=== PATIENT | female | born 1950 | race Caucasian/White ===

== ENCOUNTER 2016-11-18 13:08 | Emergency (ER) | payer MEDICAID, MEDICARE ==
[~2016-11-18] VITALS: Ht 160 cm; Wt 93.1 kg
[~2016-11-18 13:08] MED LIST: ACET-76 PO; AMLO5TAB2 PO; ARTHRITIS PAIN PO; DIAZ5TAB PO; DIPH25CA61 PO; FOLI-17 PO; MULT-750 PO; MULT-82 PO; OMEP-110 PO; OXYC-295 PO; OXYC1TAB8 PO; OXYC5CAP4 PO; THIA100T10 PO
[2016-11-18 13:22] VITALS: BP 130/72
[2016-11-18] MEDS ORDERED: CEFAZOLIN 1,000 MG IM ONE (13:30)
[2016-11-18] MEDS ORDERED: CLINDAMYCIN 300 MG CAPSULE PO ONE (14:00)
== END 2016-11-18 15:03 | disposition home or self-care (01) ==
LOC: ED 14:52
DX: L03.113 Cellulitis of right upper limb (principal); I10 Essential (primary) hypertension; F17.200 Nicotine dependence, unspecified, uncomplicated; Z88.2 Allergy status to sulfonamides; Z88.5 Allergy status to narcotic agent
CPT/HCPCS: 99284

== ENCOUNTER 2018-03-07 16:21 | Emergency (ER) | payer MEDICARE ==
[~2018-03-07] VITALS: Ht 160 cm; Wt 90.0 kg
[~2018-03-07 16:21] MED LIST changes: -AMLO5TAB2 PO; +AMLO5TAB7 PO; +MULT-224 PO; -MULT-82 PO; +OXYC5CAP2 PO; -OXYC5CAP4 PO
[2018-03-07] MEDS ORDERED: SODIUM CHLORIDE FLUSH 10ML SYR IVF ONE (16:30)
[2018-03-07] MEDS ORDERED: SODIUM CHLORIDE 0.9% 1,000ML IVBOLUS ONE ×2 (16:30→19:30)
[2018-03-07 17:33] LABS: MEAN CORPUSCULAR HEMOGLOBIN 34.1 pg (27.0-34.8); MEAN CORPUSCULAR HGB CONC 34.4 g/dL (32.4-35.8); MEAN CORPUSCULAR VOLUME 99.2 fL (80-100); MEAN PLATELET VOLUME 7.9 fL (7.4-10.4); PLATELET COUNT 184 x10^3/uL (130-400); RED BLOOD COUNT 4.33 x10^6/uL (3.82-5.3); RED CELL DISTRIBUTION WIDTH 12.3 % (9.6-15.2)
[2018-03-07 17:43] LABS: ALANINE AMINOTRANSFERASE 62 U/L (12-78); ALBUMIN 3.8 g/dL (3.4-5.0); ANION GAP 13 mmol/L (5-15); CALCIUM 8.2 mg/dL (8.5-10.1); CHLORIDE 106 mmol/L (98-107); CREATININE 0.77 mg/dL (0.55-1.02)
[2018-03-07 17:48] LABS: ALKALINE PHOSPHATASE 100 U/L (45-117); BILIRUBIN,TOTAL 0.5 mg/dL (0.2-1.0); TOTAL PROTEIN 6.9 g/dL (6.4-8.2); TROPONIN I < 0.015 ng/mL (0.000-0.045)
[2018-03-07 18:10] LABS: MD YES
[2018-03-07 18:12] LABS: BAND#(MANUAL) 1.95 x10^3/uL; BANDS%(MANUAL) 9 % (0-7); LYMPH#(MANUAL) 2.82 x10^3/uL (1-3.4); LYMPHS% (MANUAL) 13 % (22-44); MONOS#(MANUAL) 1.95 x10^3/uL (0.3-2.7); MONOS% (MANUAL) 9 % (2-9); SEG#(MANUAL) 14.97 x10^3/uL (1.8-6.8); SEGS% (MANUAL) 69 % (42-75)
[2018-03-07 18:13] LABS: <PLATELET ESTIMATE> ADEQUATE; <PLT MORPHOLOGY> NORMAL PLT MORPH; ANISOCYTOSIS 1+
[2018-03-07] MEDS ORDERED: OMNIPAQUE 350 MG/ML, 100ML BOTTLE ONE (18:52)
[2018-03-07 19:16] VITALS: BP 146/79
[2018-03-08] MEDS ORDERED: OXYC-307 PO (11:01)
[2018-03-08] MEDS ORDERED: LISI-170 PO (11:01)
[2018-03-08] MEDS ORDERED: GABA300C10 PO (11:01)
[2018-03-08] MEDS ORDERED: AMLO10TA6 PO (11:01)
[2018-03-08] MEDS ORDERED: ATOR40TA78 PO (15:43)
== END 2018-03-07 20:16 | disposition home or self-care (01) ==
LOC: EDBD 16:21 → ED 17:10 → MERGE 17:10 → ED 20:16
DX: E86.0 Dehydration (principal); R42 Dizziness and giddiness; R53.1 Weakness; F10.129 Alcohol abuse with intoxication, unspecified; I10 Essential (primary) hypertension; E78.00 Pure hypercholesterolemia, unspecified
CPT/HCPCS: 36415; 74022; 74177; 80053; 80307; 83690; 84484; 85025; 93005; 96360; 96361; 99284; J7030; Q9967

== ENCOUNTER 2018-03-08 08:38 | Emergency (ER) | payer MEDICARE ==
[~2018-03-08] VITALS: Ht 157.5 cm; Wt 90.3 kg
[2018-03-08 08:43] VITALS: BP 121/99
[2018-03-08] MEDS ORDERED: LISI-170 PO (11:01)
[2018-03-08] MEDS ORDERED: OXYC-307 PO (11:01)
[2018-03-08] MEDS ORDERED: GABA300C10 PO (11:01)
[2018-03-08] MEDS ORDERED: AMLO10TA6 PO (11:01)
[2018-03-08] MEDS ORDERED: ATOR40TA78 PO (15:43)
== END 2018-03-08 10:20 | disposition left against medical advice (07) ==
LOC: ED 10:14
DX: R42 Dizziness and giddiness (principal); R10.30 Lower abdominal pain, unspecified; K92.1 Melena; Z53.21 Procedure and treatment not carried out due to patient leaving prior to being seen by health care provider

== ENCOUNTER 2018-03-08 10:33 | Inpatient (IN) | payer MEDICARE ==
[~2018-03-08] VITALS: Ht 157.5 cm; Wt 89.6 kg
[2018-03-08] MEDS ORDERED: AMLO10TA6 PO (11:01)
[2018-03-08] MEDS ORDERED: OXYC-307 PO (11:01)
[2018-03-08] MEDS ORDERED: GABA300C10 PO (11:01)
[2018-03-08] MEDS ORDERED: LISI-170 PO (11:01)
[2018-03-08] MEDS ORDERED: SODIUM CHLORIDE 0.9% 1,000 ML IV ONE (11:18)
[2018-03-08] MEDS ORDERED: ONDANSETRON 2MG/ML, 2ML IVPush ONE (11:30)
[2018-03-08] MEDS ORDERED: SODIUM CHLORIDE FLUSH 10ML SYR IVF ONE (11:30)
[2018-03-08 11:46] LABS: BASOPHILS # (AUTO) 0.03 x10^3/uL (0-0.1); BASOPHILS % (AUTO) 0 % (0-1); EOSINOPHILS % (AUTO) 0 % (1-7); LYMPHOCYTES # (AUTO) 1.57 x10^3/uL (1-3.4); LYMPHOCYTES % (AUTO) 10 % (22-44); MD NO; MEAN CORPUSCULAR HGB CONC 34.6 g/dL (32.4-35.8); MEAN CORPUSCULAR VOLUME 98.2 fL (80-100); MEAN PLATELET VOLUME 7.9 fL (7.4-10.4); MONOCYTES % (AUTO) 6 % (2-9); NEUTROPHILS # (AUTO) 13.33 x10^3/uL (1.8-6.8); NEUTROPHILS % (AUTO) 84 % (42-75); PLATELET COUNT 179 x10^3/uL (130-400); RED BLOOD COUNT 4.08 x10^6/uL (3.82-5.3); RED CELL DISTRIBUTION WIDTH 11.9 % (9.6-15.2)
[2018-03-08 11:53] LABS: CHLORIDE 105 mmol/L (98-107)
[2018-03-08 11:55] LABS: INTERNATIONAL NORMALIZED RATIO 0.99 (0.93-1.1); PROTHROMBIN TIME 10.5 Seconds (9.6-11.5)
[2018-03-08 11:58] LABS: ALANINE AMINOTRANSFERASE 48 U/L (12-78); ALBUMIN 3.6 g/dL (3.4-5.0); ANION GAP 7 mmol/L (5-15); CALCIUM 8.3 mg/dL (8.5-10.1); CREATININE 0.61 mg/dL (0.55-1.02)
[2018-03-08 12:00] LABS: ALKALINE PHOSPHATASE 96 U/L (45-117); TOTAL PROTEIN 6.8 g/dL (6.4-8.2)
[2018-03-08] MEDS ORDERED: ONDANSETRON 2MG/ML, 2ML ONE (12:16)
[2018-03-08] MEDS ORDERED: ONDANSETRON 2MG/ML, 2ML IVPush PRN (14:00)
[2018-03-08] MEDS ORDERED: ONDANSETRON 2MG/ML, 2ML IV PRN (14:00)
[2018-03-08] MEDS ORDERED: ONDANSETRON ODT 4 MG PO PRN (14:00)
[2018-03-08] MEDS ORDERED: hydrALAzine 20 MG/ML, 1ML IVPush PRN (14:00)
[2018-03-08 14:47] LABS: CLOSTRIDIUM DIFFICILE ANTIGEN NEGATIVE; CLOSTRIDIUM DIFFICILE TOXIN NEGATIVE (Negative)
[2018-03-08] MEDS ORDERED: GOLYTELY 4,000ML ORAL.SOL PO ONE (15:00)
[2018-03-08 15:17] VITALS: BP 137/73
[2018-03-08] MEDS: GABAPENTIN 100 MG CAPSULE PO SCH ×2 (15:39→23:04)
[2018-03-08] MEDS: OXYcodone/APAP 10/325MG TABLET PO SCH ×2 (15:39→23:04)
[2018-03-08] MEDS ORDERED: ATOR40TA78 PO (15:43)
[2018-03-08 19:30] VITALS: BP 140/79
[2018-03-08] MEDS: ATORVASTATIN 40 MG TABLET PO SCH (23:04)
[2018-03-09 01:29] VITALS: BP 151/72
[2018-03-09 05:14] LABS: MEAN CORPUSCULAR HEMOGLOBIN 32.8 pg (27.0-34.8); MEAN CORPUSCULAR HGB CONC 33.8 g/dL (32.4-35.8); MEAN CORPUSCULAR VOLUME 97.2 fL (80-100); MEAN PLATELET VOLUME 7.9 fL (7.4-10.4); PLATELET COUNT 147 x10^3/uL (130-400); RED CELL DISTRIBUTION WIDTH 11.9 % (9.6-15.2)
[2018-03-09 05:19] LABS: ANION GAP 12 mmol/L (5-15); CALCIUM 8.3 mg/dL (8.5-10.1); CHLORIDE 102 mmol/L (98-107)
[2018-03-09] MEDS: GABAPENTIN 100 MG CAPSULE PO SCH ×4 (06:00→21:22)
[2018-03-09 06:21] LABS: BASOPHILS # (AUTO) 0.05 x10^3/uL (0-0.1); BASOPHILS % (AUTO) 0 % (0-1); EOSINOPHILS # (AUTO) 0.02 x10^3/uL (0-0.4); EOSINOPHILS % (AUTO) 0 % (1-7); LYMPHOCYTES # (AUTO) 1.76 x10^3/uL (1-3.4); LYMPHOCYTES % (AUTO) 12 % (22-44); MD SCAN; MONOCYTES # (AUTO) 1.04 x10^3/uL (0.2-0.8); MONOCYTES % (AUTO) 7 % (2-9); NEUTROPHILS # (AUTO) 12.23 x10^3/uL (1.8-6.8); NEUTROPHILS % (AUTO) 81 % (42-75)
[2018-03-09] MEDS: PANTOPROZOLE 40MG TABLET PO SCH (07:52)
[2018-03-09] MEDS: OXYcodone/APAP 10/325MG TABLET PO SCH ×3 (07:52→21:22)
[2018-03-09 07:59] VITALS: BP 145/84
[2018-03-09] MEDS ORDERED: MIDAZOLAM 1 MG/ML, 2ML ONE (11:18)
[2018-03-09 14:00] VITALS: BP 125/83
[2018-03-09] MEDS: PIPERACILLIN/TAZO/PMX 3.375GM 50 ML IV SCH ×2 (14:21→21:22)
[2018-03-09 17:24] LABS: BASOPHILS # (AUTO) 0.09 x10^3/uL (0-0.1); BASOPHILS % (AUTO) 1 % (0-1); EOSINOPHILS # (AUTO) 0.08 x10^3/uL (0-0.4); EOSINOPHILS % (AUTO) 1 % (1-7); LYMPHOCYTES # (AUTO) 2.21 x10^3/uL (1-3.4); LYMPHOCYTES % (AUTO) 15 % (22-44); MD NO; MEAN CORPUSCULAR HGB CONC 34.9 g/dL (32.4-35.8); MEAN CORPUSCULAR VOLUME 97.3 fL (80-100); MEAN PLATELET VOLUME 7.5 fL (7.4-10.4); MONOCYTES % (AUTO) 5 % (2-9); NEUTROPHILS # (AUTO) 11.89 x10^3/uL (1.8-6.8); NEUTROPHILS % (AUTO) 79 % (42-75); PLATELET COUNT 145 x10^3/uL (130-400); RED BLOOD COUNT 3.68 x10^6/uL (3.82-5.3); RED CELL DISTRIBUTION WIDTH 12.1 % (9.6-15.2)
[2018-03-09 19:55] VITALS: BP 120/70
[2018-03-09] MEDS: TRAZODONE 50MG TABLET PO PRN (21:22)
[2018-03-09] MEDS: ATORVASTATIN 40 MG TABLET PO SCH (21:22)
[2018-03-10 01:02] VITALS: BP 118/81
[2018-03-10] MEDS: PIPERACILLIN/TAZO/PMX 3.375GM 50 ML IV SCH ×4 (02:48→21:57)
[2018-03-10] MEDS: GABAPENTIN 100 MG CAPSULE PO SCH ×3 (05:36→21:56)
[2018-03-10] MEDS: OXYcodone/APAP 10/325MG TABLET PO SCH ×3 (05:36→21:56)
[2018-03-10 06:06] LABS: BASOPHILS # (AUTO) 0.04 x10^3/uL (0-0.1); BASOPHILS % (AUTO) 0 % (0-1); EOSINOPHILS % (AUTO) 1 % (1-7); LYMPHOCYTES # (AUTO) 1.94 x10^3/uL (1-3.4); LYMPHOCYTES % (AUTO) 17 % (22-44); MD NO; MEAN CORPUSCULAR HEMOGLOBIN 34.3 pg (27.0-34.8); MEAN CORPUSCULAR VOLUME 98.1 fL (80-100); MONOCYTES # (AUTO) 0.67 x10^3/uL (0.2-0.8); MONOCYTES % (AUTO) 6 % (2-9); NEUTROPHILS # (AUTO) 8.49 x10^3/uL (1.8-6.8); NEUTROPHILS % (AUTO) 76 % (42-75); PLATELET COUNT 140 x10^3/uL (130-400); RED BLOOD COUNT 3.55 x10^6/uL (3.82-5.3); RED CELL DISTRIBUTION WIDTH 12.1 % (9.6-15.2)
[2018-03-10 06:13] LABS: ANION GAP 8 mmol/L (5-15); CALCIUM 8.3 mg/dL (8.5-10.1); CHLORIDE 107 mmol/L (98-107); CREATININE 0.56 mg/dL (0.55-1.02)
[2018-03-10] MEDS: PANTOPROZOLE 40MG TABLET PO SCH (07:17)
[2018-03-10 07:43] VITALS: BP 126/82
[2018-03-10 14:01] VITALS: BP 126/71
[2018-03-10 19:35] VITALS: BP 119/70
[2018-03-10] MEDS: ATORVASTATIN 40 MG TABLET PO SCH (21:56)
[2018-03-10] MEDS: TRAZODONE 50MG TABLET PO PRN (22:32)
[2018-03-11 02:07] VITALS: BP 116/80
[2018-03-11] MEDS: PIPERACILLIN/TAZO/PMX 3.375GM 50 ML IV SCH (03:57)
[2018-03-11 05:32] LABS: BASOPHILS # (AUTO) 0.02 x10^3/uL (0-0.1); BASOPHILS % (AUTO) 0 % (0-1); EOSINOPHILS # (AUTO) 0.16 x10^3/uL (0-0.4); EOSINOPHILS % (AUTO) 2 % (1-7); LYMPHOCYTES # (AUTO) 2.08 x10^3/uL (1-3.4); LYMPHOCYTES % (AUTO) 26 % (22-44); MD NO; MEAN CORPUSCULAR HEMOGLOBIN 34.3 pg (27.0-34.8); MEAN CORPUSCULAR VOLUME 97.9 fL (80-100); MEAN PLATELET VOLUME 7.9 fL (7.4-10.4); MONOCYTES # (AUTO) 0.49 x10^3/uL (0.2-0.8); MONOCYTES % (AUTO) 6 % (2-9); NEUTROPHILS # (AUTO) 5.28 x10^3/uL (1.8-6.8); NEUTROPHILS % (AUTO) 66 % (42-75); PLATELET COUNT 155 x10^3/uL (130-400); RED BLOOD COUNT 3.37 x10^6/uL (3.82-5.3); RED CELL DISTRIBUTION WIDTH 11.8 % (9.6-15.2)
[2018-03-11 05:45] LABS: ANION GAP 11 mmol/L (5-15); CALCIUM 8.3 mg/dL (8.5-10.1); CHLORIDE 107 mmol/L (98-107); CREATININE 0.64 mg/dL (0.55-1.02)
[2018-03-11] MEDS: OXYcodone/APAP 10/325MG TABLET PO SCH ×2 (06:02→13:54)
[2018-03-11] MEDS: GABAPENTIN 100 MG CAPSULE PO SCH ×2 (06:03→13:54)
[2018-03-11] MEDS ORDERED: POTASSIUM CHLORIDE 20 MEQ TAB.ER.PRT PO ONE (06:30)
[2018-03-11 07:16] VITALS: BP 111/70
[2018-03-11] MEDS: PANTOPROZOLE 40MG TABLET PO SCH (07:41)
[2018-03-11] MEDS ORDERED: PIPERACILLIN/TAZO/PMX 3.375GM 50 ML IV SCH (10:00)
[2018-03-11] MEDS ORDERED: PANT40TA5 PO (12:30)
[2018-03-11 12:47] VITALS: BP 113/72
== END 2018-03-11 15:30 | disposition home or self-care (01) | DRG 394 ==
LOC: ED 10:49 → EDIP 13:05 → 4EST 15:05 → 3NE 16:07 → DCLOUNGE 03-11 15:05
PROVIDERS: ADMIT Family Medicine; ATTEND Family Medicine
PROC: 0DBM8ZX Excision of Descending Colon, Via Natural or Artificial Opening Endoscopic, Diagnostic (ICD-10-PCS; principal; 2018-03-09 09:30)
DX: K55.9 Vascular disorder of intestine, unspecified (principal); F11.20 Opioid dependence, uncomplicated; E87.1 Hypo-osmolality and hyponatremia; F17.200 Nicotine dependence, unspecified, uncomplicated; G89.29 Other chronic pain; E78.5 Hyperlipidemia, unspecified; I10 Essential (primary) hypertension; Z87.11 Personal history of peptic ulcer disease; K21.9 Gastro-esophageal reflux disease without esophagitis; E11.9 Type 2 diabetes mellitus without complications; E78.00 Pure hypercholesterolemia, unspecified; E86.0 Dehydration; Z82.5 Family history of asthma and other chronic lower respiratory diseases; Z83.3 Family history of diabetes mellitus; K57.30 Diverticulosis of large intestine without perforation or abscess without bleeding; K64.4 Residual hemorrhoidal skin tags; M25.511 Pain in right shoulder; Z88.6 Allergy status to analgesic agent
CPT/HCPCS: 36415; 80048; 80053; 83605; 85025; 85610; 86850; 86900; 87046; 87324; 87427; 88305; 96361; 96374; 99285; G0378; J2250; J2405; J2543; Q0162; J7030

== ENCOUNTER 2020-11-19 12:05 | Outpatient (CLI) | payer MEDICARE ==
[~2020-11-19 12:05] MED LIST changes: +AMLO-150 PO; +AMLO-211 PO; -AMLO5TAB7 PO; +ATOR40TA78 PO; -FOLI-17 PO; +FOLI1TAB32 PO; +GABA300C10 PO; +LISI-170 PO; -MULT-224 PO; +MULT-482 PO; +MULT-642 PO; -MULT-750 PO; +OXYC-380 PO; +PANT40TA6 PO
[2020-11-19] MEDS ORDERED: LIDOCAINE 1%, 10ML ONE (12:16)
== END 2020-11-19 23:59 | disposition home or self-care (01) ==
LOC: RAD 12:05
PROVIDERS: ATTEND Family Medicine
DX: R22.1 Localized swelling, mass and lump, neck (principal); C77.0 Secondary and unspecified malignant neoplasm of lymph nodes of head, face and neck
CPT/HCPCS: 10005; 38505; 76942; 88305; 88342

== ENCOUNTER 2020-12-01 00:32 | Inpatient (IN) | payer MEDICARE ==
[~2020-12-01] VITALS: Ht 160 cm; Wt 77.3 kg
[2020-12-01 01:32] LABS: BASOPHILS % (AUTO) 0 % (0-1); EOSINOPHILS % (AUTO) 1 % (1-7); LYMPHOCYTES % (AUTO) 8 % (22-44); MEAN CORPUSCULAR HEMOGLOBIN 32.8 pg (27.0-34.8); MEAN CORPUSCULAR HGB CONC 33.9 g/dL (32.4-35.8); MEAN PLATELET VOLUME 7.1 fL (7.4-10.4); MONOCYTES % (AUTO) 7 % (2-9); NEUTROPHILS % (AUTO) 85 % (42-75); PLATELET COUNT 484 x10^3/uL (130-400); RED BLOOD COUNT 3.01 x10^6/uL (3.82-5.3); RED CELL DISTRIBUTION WIDTH 12.7 % (9.6-15.2)
[2020-12-01 01:40] LABS: ALANINE AMINOTRANSFERASE 33 U/L (12-78); ALBUMIN 2.2 g/dL (3.4-5.0); ANION GAP 11 mmol/L (5-15); CALCIUM 8.8 mg/dL (8.5-10.1); CHLORIDE 101 mmol/L (98-107); CREATININE 0.88 mg/dL (0.55-1.02)
[2020-12-01 01:43] LABS: ALKALINE PHOSPHATASE 159 U/L (45-117); BILIRUBIN,TOTAL 0.2 mg/dL (0.2-1.0); TOTAL PROTEIN 7.4 g/dL (6.4-8.2)
[2020-12-01] MEDS ORDERED: SODIUM CHLORIDE 0.9% 1,000ML IVBOLUS ONE (02:00)
[2020-12-01] MEDS ORDERED: ONDANSETRON 2MG/ML, 2ML ONE (02:08)
[2020-12-01] MEDS ORDERED: MORPHINE SULFATE 4 MG/ML, 1ML ONE (02:08)
[2020-12-01] MEDS ORDERED: MORPHINE SULFATE 4 MG/ML, 1ML IVPush PRN ×2 (02:30)
[2020-12-01] MEDS ORDERED: ONDANSETRON 2MG/ML, 2ML IVPush PRN (02:30)
[2020-12-01] MEDS ORDERED: SODIUM CHLORIDE 0.9% 1,000 ML IV ONE (02:30)
[2020-12-01] MEDS ORDERED: ONDANSETRON 2MG/ML, 2ML IVPush ONE (02:30)
[2020-12-01] MEDS ORDERED: MELATONIN 5 MG TABLET PO PRN (03:00)
[2020-12-01] MEDS ORDERED: LABETALOL 5MG/ML, 20ML IVPush PRN (03:00)
[2020-12-01] MEDS ORDERED: KETOROLAC 30 MG/1 ML IV PRN (03:00)
[2020-12-01] MEDS ORDERED: VANCOMYCIN PER PHARMACY MC PRN (03:00)
--- NOTE | 2020-12-01 03:02 | NUR ---
Report given to HILLARY Calix no further questions at this time.
[2020-12-01 03:21] VITALS: BP 151/72
[2020-12-01] MEDS: AMPICILLIN/SULBACTAM 3 GM in SODIUM CHLORIDE 0.9% 100 ML IV SCH ×4 (04:21→22:04)
[2020-12-01] MEDS: LACTATED RINGERS 1,000 ML IV SCH ×2 (04:21→20:51)
[2020-12-01] MEDS ORDERED: PHARMACOKINETIC MONITORING MC PRN (04:30)
[2020-12-01] MEDS: ACETAMINOPHEN 325 MG TABLET PO SCH ×2 (04:54→07:48)
[2020-12-01] MEDS: VANCOMYCIN 1,600 MG in SODIUM CHLORIDE 0.9% 250 ML IV SCH ×2 (05:04→23:04)
[2020-12-01 06:38] VITALS: BP 121/77
[2020-12-01] MEDS ORDERED: GABA100C PO (07:59)
[2020-12-01] MEDS ORDERED: MULT-709 PO (08:01)
[2020-12-01] MEDS ORDERED: LISI-170 PO (08:01)
[2020-12-01] MEDS ORDERED: OMEP-110 PO (08:01)
[2020-12-01] MEDS ORDERED: TIZA4TAB2 PO (08:01)
[2020-12-01] MEDS ORDERED: ESZO1TAB8 PO (08:01)
[2020-12-01] MEDS: HYDROmorphone 2 MG/ML, 1ML IVPush PRN ×3 (09:21→15:05)
[2020-12-01] MEDS: OMEPRAZOLE 20 MG CAPSULE.DR PO SCH ×2 (09:22→20:51)
[2020-12-01] MEDS: GABAPENTIN 100 MG CAPSULE PO SCH ×3 (09:22→20:51)
[2020-12-01] MEDS: LISINOPRIL 20 MG TABLET PO SCH (09:22)
[2020-12-01] MEDS: OXYcodone/APAP 10/325MG TABLET PO PRN ×2 (11:57→16:31)
[2020-12-01 13:19] VITALS: BP 135/79
[2020-12-01 18:51] VITALS: BP 134/80
[2020-12-01] MEDS: ATORVASTATIN 40 MG TABLET PO SCH (20:51)
[2020-12-01] MEDS: ONDANSETRON 2MG/ML, 2ML IVPush PRN (20:57)
[2020-12-02 00:27] VITALS: BP 147/83
[2020-12-02] MEDS: OXYcodone/APAP 10/325MG TABLET PO PRN ×4 (03:00→20:08)
[2020-12-02] MEDS ORDERED: AMPICILLIN/SULBACTAM 3 GM in SODIUM CHLORIDE 0.9% 100 ML IV SCH (04:00)
[2020-12-02 05:44] LABS: MEAN CORPUSCULAR HEMOGLOBIN 32.2 pg (27.0-34.8); MEAN CORPUSCULAR HGB CONC 33.3 g/dL (32.4-35.8); MEAN PLATELET VOLUME 7.2 fL (7.4-10.4); PLATELET COUNT 429 x10^3/uL (130-400); RED BLOOD COUNT 2.73 x10^6/uL (3.82-5.3); RED CELL DISTRIBUTION WIDTH 12.4 % (9.6-15.2)
[2020-12-02 05:46] LABS: CHLORIDE 103 mmol/L (98-107)
[2020-12-02 05:59] LABS: ANION GAP 7 mmol/L (5-15); CALCIUM 8.9 mg/dL (8.5-10.1); CREATININE 0.42 mg/dL (0.55-1.02)
[2020-12-02 06:12] LABS: EOS#(MANUAL) 0.13 x10^3/uL (0.0-0.4); EOS% (MANUAL) 1 % (1-7); LYMPH#(MANUAL) 0.88 x10^3/uL (1-3.4); LYMPHS% (MANUAL) 7 % (22-44); METAMYELOCYTES# (MANUAL) 0.25 x10^3/uL (0-0); METAMYELOCYTES% (MANUAL) 2 % (0-1); MONOS#(MANUAL) 0.75 x10^3/uL (0.3-2.7); MONOS% (MANUAL) 6 % (2-9); MYELOCYTES# (MANUAL) 0.13 x10^3/uL (0-0); MYELOCYTES% (MANUAL) 1 % (0-0); SEG#(MANUAL) 10.38 x10^3/uL (1.8-6.8); SEGS% (MANUAL) 83 % (42-75)
[2020-12-02 06:13] LABS: <PLATELET ESTIMATE> INCREASED; <PLT MORPHOLOGY> NORMAL PLT MORPH; <RBC MORPHOLOGY> NORMAL
[2020-12-02 06:33] VITALS: BP 157/81
[2020-12-02] MEDS: ONDANSETRON 2MG/ML, 2ML IVPush PRN ×3 (06:41→19:30)
[2020-12-02] MEDS: LISINOPRIL 20 MG TABLET PO SCH (08:43)
[2020-12-02] MEDS: GABAPENTIN 100 MG CAPSULE PO SCH ×3 (08:43→20:08)
[2020-12-02] MEDS: OMEPRAZOLE 20 MG CAPSULE.DR PO SCH ×2 (08:43→20:08)
[2020-12-02] MEDS: HYDROmorphone 2 MG/ML, 1ML IVPush PRN ×5 (10:00→22:38)
[2020-12-02 12:31] VITALS: BP 162/75
[2020-12-02] MEDS ORDERED: OMNIPAQUE 350 MG/ML, 100ML BOTTLE ONE (16:30)
[2020-12-02] MEDS: LACTATED RINGERS 1,000 ML IV SCH (17:01)
[2020-12-02] MEDS: VANCOMYCIN 1,600 MG in SODIUM CHLORIDE 0.9% 250 ML IV SCH (17:02)
[2020-12-02 18:37] VITALS: BP 163/93
[2020-12-02] MEDS: ATORVASTATIN 40 MG TABLET PO SCH (20:08)
[2020-12-02] MEDS: ZOLPIDEM 5MG TABLET PO PRN (20:08)
[2020-12-03 01:46] VITALS: BP 159/84
[2020-12-03] MEDS: HYDROmorphone 2 MG/ML, 1ML IVPush PRN ×7 (02:02→20:54)
[2020-12-03] MEDS: LACTATED RINGERS 1,000 ML IV SCH ×2 (04:56→20:03)
[2020-12-03 06:32] LABS: MEAN CORPUSCULAR HEMOGLOBIN 32.9 pg (27.0-34.8); MEAN CORPUSCULAR HGB CONC 34.1 g/dL (32.4-35.8); MEAN PLATELET VOLUME 7.4 fL (7.4-10.4); PLATELET COUNT 501 x10^3/uL (130-400); RED BLOOD COUNT 2.87 x10^6/uL (3.82-5.3); RED CELL DISTRIBUTION WIDTH 12.5 % (9.6-15.2)
[2020-12-03 06:35] LABS: CHLORIDE 99 mmol/L (98-107)
[2020-12-03 06:47] LABS: ANION GAP 9 mmol/L (5-15); CALCIUM 9.3 mg/dL (8.5-10.1); CREATININE 0.33 mg/dL (0.55-1.02)
[2020-12-03 07:36] VITALS: BP 160/94
[2020-12-03] MEDS: ONDANSETRON 2MG/ML, 2ML IVPush PRN ×2 (07:53→14:31)
[2020-12-03] MEDS: OMEPRAZOLE 20 MG CAPSULE.DR PO SCH ×2 (07:53→20:03)
[2020-12-03] MEDS: GABAPENTIN 100 MG CAPSULE PO SCH ×3 (07:53→20:01)
[2020-12-03] MEDS: LISINOPRIL 20 MG TABLET PO SCH (07:53)
[2020-12-03 08:06] LABS: <PLATELET ESTIMATE> INCREASED; <PLT MORPHOLOGY> NORMAL PLT MORPH; <RBC MORPHOLOGY> NORMAL; LYMPH#(MANUAL) 0.63 x10^3/uL (1-3.4); LYMPHS% (MANUAL) 5 % (22-44); METAMYELOCYTES# (MANUAL) 0.25 x10^3/uL (0-0); METAMYELOCYTES% (MANUAL) 2 % (0-1); MONOS#(MANUAL) 1.13 x10^3/uL (0.3-2.7); MONOS% (MANUAL) 9 % (2-9); SEG#(MANUAL) 10.58 x10^3/uL (1.8-6.8); SEGS% (MANUAL) 84 % (42-75)
[2020-12-03] MEDS: OXYcodone/APAP 10/325MG TABLET PO PRN ×3 (10:09→20:03)
[2020-12-03] MEDS ORDERED: OMNIPAQUE 350 MG/ML, 100ML BOTTLE ONE (10:15)
[2020-12-03] MEDS: VANCOMYCIN 1,600 MG in SODIUM CHLORIDE 0.9% 250 ML IV SCH (11:11)
[2020-12-03 15:30] VITALS: BP 139/80
[2020-12-03] MEDS: CEFAZOLIN PMX 1GM/50ML 50 ML IV SCH (18:00)
[2020-12-03] MEDS: ZOLPIDEM 5MG TABLET PO PRN (20:00)
[2020-12-03] MEDS: ATORVASTATIN 40 MG TABLET PO SCH (20:01)
[2020-12-03 20:11] VITALS: BP 163/81
[2020-12-03] MEDS ORDERED: VANCOMYCIN 1,600 MG in SODIUM CHLORIDE 0.9% 250 ML IV SCH (23:00)
[2020-12-04] MEDS: HYDROmorphone 2 MG/ML, 1ML IVPush PRN ×6 (02:15→20:34)
[2020-12-04] MEDS: OXYcodone/APAP 10/325MG TABLET PO PRN ×4 (02:23→19:44)
[2020-12-04 02:24] VITALS: BP 151/83
[2020-12-04 05:13] LABS: MEAN CORPUSCULAR HGB CONC 34.5 g/dL (32.4-35.8); MEAN PLATELET VOLUME 6.5 fL (7.4-10.4); PLATELET COUNT 524 x10^3/uL (130-400); RED BLOOD COUNT 2.83 x10^6/uL (3.82-5.3); RED CELL DISTRIBUTION WIDTH 12.4 % (9.6-15.2)
[2020-12-04 05:25] LABS: ANION GAP 6 mmol/L (5-15); CHLORIDE 97 mmol/L (98-107)
[2020-12-04 05:26] LABS: CREATININE 0.36 mg/dL (0.55-1.02)
[2020-12-04] MEDS: CEFAZOLIN PMX 1GM/50ML 50 ML IV SCH (05:43)
[2020-12-04 05:55] LABS: <PLATELET ESTIMATE> INCREASED; <PLT MORPHOLOGY> NORMAL PLT MORPH; <RBC MORPHOLOGY> NORMAL; LYMPH#(MANUAL) 1.26 x10^3/uL (1-3.4); LYMPHS% (MANUAL) 10 % (22-44); MONOS#(MANUAL) 1.26 x10^3/uL (0.3-2.7); MONOS% (MANUAL) 10 % (2-9); MYELOCYTES# (MANUAL) 0.13 x10^3/uL (0-0); MYELOCYTES% (MANUAL) 1 % (0-0); SEG#(MANUAL) 9.95 x10^3/uL (1.8-6.8); SEGS% (MANUAL) 79 % (42-75)
[2020-12-04] MEDS: OMEPRAZOLE 20 MG CAPSULE.DR PO SCH ×2 (08:20→19:44)
[2020-12-04] MEDS: LISINOPRIL 20 MG TABLET PO SCH (08:20)
[2020-12-04] MEDS: GABAPENTIN 100 MG CAPSULE PO SCH ×3 (08:20→19:43)
[2020-12-04] MEDS ORDERED: VANCOMYCIN PER PHARMACY MC PRN (08:30)
[2020-12-04 08:38] VITALS: BP 147/70
[2020-12-04] MEDS ORDERED: PHARMACOKINETIC MONITORING MC PRN (09:00)
[2020-12-04] MEDS: ENOXAPARIN 40 MG/0.4 ML SQ SCH (09:00)
[2020-12-04] MEDS ORDERED: PHARMACOKINETIC CONSULTATION MC ONE (09:00)
[2020-12-04] MEDS ORDERED: VANCOMYCIN 2,200 MG in SODIUM CHLORIDE 0.9% 500 ML IV ONE (09:00)
[2020-12-04] MEDS: ONDANSETRON 2MG/ML, 2ML IVPush PRN (10:41)
[2020-12-04] MEDS: LACTATED RINGERS 1,000 ML IV SCH (11:16)
[2020-12-04 12:57] VITALS: BP 156/75
[2020-12-04] MEDS: CEFTRIAXONE 2 GM in DEXTROSE 5% 50 ML IVPB SCH (14:16)
[2020-12-04 18:35] VITALS: BP 156/75
[2020-12-04] MEDS: ATORVASTATIN 40 MG TABLET PO SCH (19:43)
[2020-12-04] MEDS: ZOLPIDEM 5MG TABLET PO PRN (19:44)
[2020-12-05 00:11] VITALS: BP 137/77
[2020-12-05] MEDS: HYDROmorphone 2 MG/ML, 1ML IVPush PRN ×8 (00:18→21:43)
[2020-12-05 05:07] LABS: MEAN CORPUSCULAR HEMOGLOBIN 33.2 pg (27.0-34.8); MEAN CORPUSCULAR HGB CONC 34.8 g/dL (32.4-35.8); MEAN PLATELET VOLUME 6.4 fL (7.4-10.4); PLATELET COUNT 530 x10^3/uL (130-400); RED BLOOD COUNT 2.99 x10^6/uL (3.82-5.3); RED CELL DISTRIBUTION WIDTH 12.3 % (9.6-15.2)
[2020-12-05 05:15] LABS: ANION GAP 7 mmol/L (5-15); CALCIUM 8.9 mg/dL (8.5-10.1); CHLORIDE 95 mmol/L (98-107); CREATININE 0.45 mg/dL (0.55-1.02)
[2020-12-05 05:50] LABS: BAND#(MANUAL) 0.11 x10^3/uL; BANDS%(MANUAL) 1 % (0-7); EOS#(MANUAL) 0.56 x10^3/uL (0.0-0.4); EOS% (MANUAL) 5 % (1-7); LYMPH#(MANUAL) 1.67 x10^3/uL (1-3.4); LYMPHS% (MANUAL) 15 % (22-44); METAMYELOCYTES# (MANUAL) 0.44 x10^3/uL (0-0); METAMYELOCYTES% (MANUAL) 4 % (0-1); MONOS#(MANUAL) 0.56 x10^3/uL (0.3-2.7); MONOS% (MANUAL) 5 % (2-9); MYELOCYTES# (MANUAL) 0.22 x10^3/uL (0-0); MYELOCYTES% (MANUAL) 2 % (0-0); SEG#(MANUAL) 7.55 x10^3/uL (1.8-6.8); SEGS% (MANUAL) 68 % (42-75)
[2020-12-05 05:51] LABS: <PLATELET ESTIMATE> INCREASED; <PLT MORPHOLOGY> NORMAL PLT MORPH; POLYCHROMASIA 1+
[2020-12-05] MEDS: OXYcodone/APAP 10/325MG TABLET PO PRN ×3 (06:14→18:11)
[2020-12-05 07:03] VITALS: BP 136/81
[2020-12-05] MEDS: ENOXAPARIN 40 MG/0.4 ML SQ SCH (08:32)
[2020-12-05] MEDS: OMEPRAZOLE 20 MG CAPSULE.DR PO SCH ×2 (08:32→20:29)
[2020-12-05] MEDS: GABAPENTIN 100 MG CAPSULE PO SCH ×3 (08:33→20:29)
[2020-12-05] MEDS: LISINOPRIL 20 MG TABLET PO SCH (08:33)
[2020-12-05] MEDS: CEFTRIAXONE 2 GM in DEXTROSE 5% 50 ML IVPB SCH (13:06)
[2020-12-05 13:16] VITALS: BP 169/82
[2020-12-05] MEDS ORDERED: LIDOCAINE JELLY 2%, 30GM TP PRN (15:30)
[2020-12-05 19:29] VITALS: BP 163/78
[2020-12-05] MEDS: ZOLPIDEM 5MG TABLET PO PRN (20:29)
[2020-12-05] MEDS: ATORVASTATIN 40 MG TABLET PO SCH (20:29)
[2020-12-06] MEDS: OXYcodone/APAP 10/325MG TABLET PO PRN ×5 (00:29→18:11)
[2020-12-06] MEDS: HYDROmorphone 2 MG/ML, 1ML IVPush PRN ×7 (01:10→19:49)
[2020-12-06 01:29] VITALS: BP 145/74
[2020-12-06 04:26] LABS: BASOPHILS % (AUTO) 1 % (0-1); EOSINOPHILS % (AUTO) 2 % (1-7); LYMPHOCYTES % (AUTO) 11 % (22-44); MEAN CORPUSCULAR HEMOGLOBIN 32.9 pg (27.0-34.8); MEAN CORPUSCULAR HGB CONC 34.4 g/dL (32.4-35.8); MEAN PLATELET VOLUME 6.7 fL (7.4-10.4); MONOCYTES % (AUTO) 8 % (2-9); NEUTROPHILS % (AUTO) 78 % (42-75); PLATELET COUNT 568 x10^3/uL (130-400); RED BLOOD COUNT 3.03 x10^6/uL (3.82-5.3); RED CELL DISTRIBUTION WIDTH 12.5 % (9.6-15.2)
[2020-12-06 04:28] LABS: HCT (SEDRATE) 28.4 % (34.6-47.8)
[2020-12-06 04:43] LABS: ALBUMIN 2.3 g/dL (3.4-5.0); ANION GAP 8 mmol/L (5-15); CHLORIDE 95 mmol/L (98-107)
[2020-12-06 04:55] LABS: ALANINE AMINOTRANSFERASE 87 U/L (12-78); ALKALINE PHOSPHATASE 124 U/L (45-117); BILIRUBIN,TOTAL 0.3 mg/dL (0.2-1.0); CREATININE 0.44 mg/dL (0.55-1.02); TOTAL PROTEIN 6.9 g/dL (6.4-8.2)
[2020-12-06 06:45] VITALS: BP 159/87
[2020-12-06] MEDS: LISINOPRIL 20 MG TABLET PO SCH (09:00)
[2020-12-06] MEDS: OMEPRAZOLE 20 MG CAPSULE.DR PO SCH ×2 (09:00→21:20)
[2020-12-06] MEDS: GABAPENTIN 100 MG CAPSULE PO SCH ×3 (09:00→21:20)
[2020-12-06] MEDS: ENOXAPARIN 40 MG/0.4 ML SQ SCH (09:00)
[2020-12-06] MEDS: ONDANSETRON 2MG/ML, 2ML IVPush PRN (09:21)
[2020-12-06 13:05] VITALS: BP 131/67
[2020-12-06] MEDS: CEFTRIAXONE 2 GM in DEXTROSE 5% 50 ML IVPB SCH (13:11)
[2020-12-06 18:41] VITALS: BP 138/78
[2020-12-06] MEDS: FENTANYL 25 MCG PATCH TD SCH (19:48)
[2020-12-06] MEDS: ZOLPIDEM 5MG TABLET PO PRN (21:20)
[2020-12-06] MEDS: ATORVASTATIN 40 MG TABLET PO SCH (21:20)
[2020-12-07] MEDS: OXYcodone/APAP 10/325MG TABLET PO PRN ×3 (00:18→12:51)
[2020-12-07] MEDS: HYDROmorphone 2 MG/ML, 1ML IVPush PRN ×7 (02:45→21:26)
[2020-12-07 02:50] VITALS: BP 136/67
[2020-12-07 06:10] LABS: MEAN CORPUSCULAR HEMOGLOBIN 33.4 pg (27.0-34.8); MEAN CORPUSCULAR HGB CONC 35.1 g/dL (32.4-35.8); MEAN PLATELET VOLUME 6.5 fL (7.4-10.4); PLATELET COUNT 575 x10^3/uL (130-400); RED CELL DISTRIBUTION WIDTH 12.3 % (9.6-15.2)
[2020-12-07 06:15] LABS: ALBUMIN 2.5 g/dL (3.4-5.0); ANION GAP 6 mmol/L (5-15); CALCIUM 8.7 mg/dL (8.5-10.1); CHLORIDE 100 mmol/L (98-107)
[2020-12-07 06:19] LABS: ALANINE AMINOTRANSFERASE 78 U/L (12-78); ALKALINE PHOSPHATASE 125 U/L (45-117); BILIRUBIN,TOTAL 0.3 mg/dL (0.2-1.0)
[2020-12-07 06:33] LABS: BAND#(MANUAL) 0.19 x10^3/uL; BANDS%(MANUAL) 2 % (0-7); EOS% (MANUAL) 1 % (1-7); LYMPH#(MANUAL) 1.34 x10^3/uL (1-3.4); LYMPHS% (MANUAL) 14 % (22-44); METAMYELOCYTES% (MANUAL) 1 % (0-1); MONOS#(MANUAL) 0.77 x10^3/uL (0.3-2.7); MONOS% (MANUAL) 8 % (2-9); MYELOCYTES% (MANUAL) 1 % (0-0); SEG#(MANUAL) 7.01 x10^3/uL (1.8-6.8); SEGS% (MANUAL) 73 % (42-75)
[2020-12-07 06:40] LABS: <PLATELET ESTIMATE> INCREASED; <PLT MORPHOLOGY> NORMAL PLT MORPH; <RBC MORPHOLOGY> NORMAL
[2020-12-07 08:36] VITALS: BP 127/75
[2020-12-07] MEDS: LISINOPRIL 20 MG TABLET PO SCH (08:46)
[2020-12-07] MEDS: OMEPRAZOLE 20 MG CAPSULE.DR PO SCH ×2 (08:47→20:02)
[2020-12-07] MEDS: GABAPENTIN 100 MG CAPSULE PO SCH ×3 (08:47→20:02)
[2020-12-07] MEDS: ENOXAPARIN 40 MG/0.4 ML SQ SCH (08:47)
[2020-12-07] MEDS: CEFTRIAXONE 2 GM in DEXTROSE 5% 50 ML IVPB SCH (12:43)
[2020-12-07 15:31] VITALS: BP 151/80
[2020-12-07] MEDS: OXYcodone IR 5MG TABLET PO SCH ×2 (16:58→20:02)
[2020-12-07 18:47] VITALS: BP 177/83
[2020-12-07] MEDS: ATORVASTATIN 40 MG TABLET PO SCH (20:02)
[2020-12-07] MEDS: ZOLPIDEM 5MG TABLET PO PRN (21:26)
[2020-12-08] MEDS: OXYcodone IR 5MG TABLET PO SCH ×7 (00:12→23:57)
[2020-12-08 00:27] VITALS: BP 137/86
[2020-12-08] MEDS: HYDROmorphone 2 MG/ML, 1ML IVPush PRN ×2 (04:01→18:42)
[2020-12-08 06:40] VITALS: BP 158/66
[2020-12-08] MEDS: GABAPENTIN 100 MG CAPSULE PO SCH ×3 (08:21→21:01)
[2020-12-08] MEDS: LISINOPRIL 20 MG TABLET PO SCH (08:22)
[2020-12-08] MEDS: OMEPRAZOLE 20 MG CAPSULE.DR PO SCH ×2 (08:22→21:01)
[2020-12-08] MEDS: ENOXAPARIN 40 MG/0.4 ML SQ SCH (08:22)
[2020-12-08 12:43] VITALS: BP 145/76
[2020-12-08] MEDS: CEFTRIAXONE 2 GM in DEXTROSE 5% 50 ML IVPB SCH (12:50)
[2020-12-08 18:41] VITALS: BP 158/90
[2020-12-08] MEDS: ATORVASTATIN 40 MG TABLET PO SCH (19:34)
[2020-12-08] MEDS: ZOLPIDEM 5MG TABLET PO PRN (21:04)
[2020-12-09 03:43] VITALS: BP 133/78
[2020-12-09] MEDS: OXYcodone IR 5MG TABLET PO SCH ×5 (03:47→19:21)
[2020-12-09] MEDS: HYDROmorphone 2 MG/ML, 1ML IVPush PRN (05:02)
[2020-12-09 07:44] VITALS: BP 145/77
[2020-12-09] MEDS: ENOXAPARIN 40 MG/0.4 ML SQ SCH (07:49)
[2020-12-09] MEDS: GABAPENTIN 100 MG CAPSULE PO SCH ×3 (07:50→21:00)
[2020-12-09] MEDS: LISINOPRIL 20 MG TABLET PO SCH (07:50)
[2020-12-09] MEDS: OMEPRAZOLE 20 MG CAPSULE.DR PO SCH ×2 (07:50→21:00)
[2020-12-09 13:40] VITALS: BP 113/68
[2020-12-09] MEDS: CEFTRIAXONE 2 GM in DEXTROSE 5% 50 ML IVPB SCH (13:42)
[2020-12-09 19:00] VITALS: BP 149/79
[2020-12-09] MEDS: FENTANYL 25 MCG PATCH TD SCH (19:21)
[2020-12-09] MEDS: ATORVASTATIN 40 MG TABLET PO SCH (21:00)
[2020-12-09] MEDS: ZOLPIDEM 5MG TABLET PO PRN (21:03)
[2020-12-10] MEDS: OXYcodone IR 5MG TABLET PO SCH ×4 (00:05→13:00)
[2020-12-10 00:07] VITALS: BP 135/78
[2020-12-10 07:27] VITALS: BP 126/98
[2020-12-10] MEDS ORDERED: CEFT2FRO2 IJ (08:03)
[2020-12-10] MEDS ORDERED: OXYC5TAB98 PO (08:03)
[2020-12-10] MEDS ORDERED: MORP-30 PO (08:03)
[2020-12-10] MEDS ORDERED: FENT1PAT75 TD (08:03)
[2020-12-10] MEDS: GABAPENTIN 100 MG CAPSULE PO SCH (08:24)
[2020-12-10] MEDS: OMEPRAZOLE 20 MG CAPSULE.DR PO SCH (08:24)
[2020-12-10] MEDS: LISINOPRIL 20 MG TABLET PO SCH (08:24)
[2020-12-10] MEDS: ENOXAPARIN 40 MG/0.4 ML SQ SCH (08:25)
[2020-12-10] MEDS: CEFTRIAXONE 2 GM in DEXTROSE 5% 50 ML IVPB SCH (12:58)
[2020-12-10 13:17] VITALS: BP 123/75
== END 2020-12-10 15:22 | disposition home or self-care (01) | DRG 871 ==
LOC: ED 01:26 → EDIP 02:35 → 4NW 03:17
PROVIDERS: ADMIT Internal Medicine; ATTEND Hospitalist
PROC: 02HV33Z Insertion of Infusion Device into Superior Vena Cava, Percutaneous Approach (ICD-10-PCS; principal; 2020-12-06)
PROC: B548ZZA Ultrasonography of Superior Vena Cava, Guidance (ICD-10-PCS; 2020-12-06)
PROC: B5181ZA Fluoroscopy of Superior Vena Cava using Low Osmolar Contrast, Guidance (ICD-10-PCS; 2020-12-06)
DX: A40.8 Other streptococcal sepsis (principal); E43 Unspecified severe protein-calorie malnutrition; L03.221 Cellulitis of neck; E87.1 Hypo-osmolality and hyponatremia; E66.01 Morbid (severe) obesity due to excess calories; C32.1 Malignant neoplasm of supraglottis; I10 Essential (primary) hypertension; Z68.32 Body mass index [BMI] 32.0-32.9, adult; C44.90 Unspecified malignant neoplasm of skin, unspecified; D64.9 Anemia, unspecified; E11.9 Type 2 diabetes mellitus without complications; E78.5 Hyperlipidemia, unspecified; F17.210 Nicotine dependence, cigarettes, uncomplicated; G89.3 Neoplasm related pain (acute) (chronic); M43.12 Spondylolisthesis, cervical region; Z85.89 Personal history of malignant neoplasm of other organs and systems; L04.0 Acute lymphadenitis of face, head and neck; Z96.611 Presence of right artificial shoulder joint; L53.9 Erythematous condition, unspecified; R53.81 Other malaise; Z88.2 Allergy status to sulfonamides; Z88.5 Allergy status to narcotic agent
CPT/HCPCS: 36415; 36573; 70491; 71260; 72040; 74177; 80048; 80053; 80202; 83735; 84145; 84443; 85025; 85651; 86140; 87040; 87070; 87205; 93306; 93356; 96374; 96375; G0378; J0295; J0690; J0696; J1170; J1650; J1885; J2405; J3370; Q9967; C1751; J2270; J7030; J7040; J7050; J7120

== ENCOUNTER 2020-12-24 07:29 | Outpatient (CLI) | payer MEDICARE ==
[~2020-12-24 07:29] MED LIST changes: +CEFT2FRO2 IJ; +ESZO1TAB8 PO; +FENT1PAT75 TD; +GABA100C PO; +MORP-30 PO; +MULT-709 PO; -OXYC-380 PO; +OXYC-501 PO; +OXYC5TAB98 PO; +TIZA4TAB2 PO
== END 2020-12-24 23:59 | disposition home or self-care (01) ==
LOC: ROC 07:29
PROVIDERS: ATTEND Radiology Radiation Oncology
DX: C32.1 Malignant neoplasm of supraglottis (principal); G89.3 Neoplasm related pain (acute) (chronic); I10 Essential (primary) hypertension; E11.9 Type 2 diabetes mellitus without complications; E78.5 Hyperlipidemia, unspecified; E66.01 Morbid (severe) obesity due to excess calories; Z68.32 Body mass index [BMI] 32.0-32.9, adult; Z96.611 Presence of right artificial shoulder joint; Z87.891 Personal history of nicotine dependence
CPT/HCPCS: 99214; G0463